=== PATIENT | female | born 1940 | race Caucasian/White ===

== ENCOUNTER → 2016-12-17 | Outpatient (CLI) | payer MEDICARE, OTHER ==
[2016-12-17 09:27] LABS: BASOPHILS % (AUTO) 1 % (0-2); EOSINOPHILS # (AUTO) 0.2 10^3uL; EOSINOPHILS % (AUTO) 4 % (0-4); LYMPHOCYTES # (AUTO) 0.8 X10^3; MEAN CORPUSCULAR HGB CONC 33.3 g/dL (31.0-37.0); MEAN CORPUSCULAR VOLUME 93 FL (80-100); MEAN PLATELET VOLUME 9.3 FL (6.0-9.5); MONOCYTES # (AUTO) 0.6 X10^3; MONOCYTES % (AUTO) 11 % (3-11); NEUTROPHILS # (AUTO) 3.8 X10^3; NEUTROPHILS % (AUTO) 70 % (51-67); PLATELET COUNT 205 10^3uL (150-450); WHITE BLOOD COUNT 5.45 10^3uL (4.0-11.0)
[2016-12-17 10:09] LABS: ERYTHROCYTE SEDIMENTATION RT* 17 mm/hr (0-23)
[2016-12-17 10:23] LABS: ALBUMIN 3.6 g/dL (3.4-5.0); CALCULATED IONIZED CALCIUM 4.5 mg/dL (3.8-4.6); TOTAL PROTEIN 6.3 g/dL (6.4-8.5)
== END ==
LOC: LAB 09:05
PROVIDERS: ATTEND Internal Medicine Rheumatology
DX: M54.08 Panniculitis affecting regions of neck and back, sacral and sacrococcygeal region (principal); M06.09 Rheumatoid arthritis without rheumatoid factor, multiple sites
CPT/HCPCS: 36415; 80053; 85025; 85652; 86140

== ENCOUNTER → 2016-12-31 | Outpatient (CLI) | payer MEDICARE, OTHER ==
--- NOTE | 2016-12-31 12:52 | Diagnostic Imaging Report ---
PROCEDURE: CT angiography of the chest with contrast. TECHNIQUE: Multiple contiguous axial images were obtained through the chest after uneventful bolus administration of intravenous contrast. Reconstructed CTA MIP acquisitions were also performed. INDICATION: Elevated d-dimer. FINDINGS: There is good opacification of the aorta and pulmonary arteries. No evidence of aortic aneurysm or dissection. Pulmonary artery show no filling defects to indicate pulmonary emboli. There has been development of mild infiltrate in the lung bases since previous exam more prominent on the left. No pleural effusions. No mediastinal or hilar adenopathy of pathologic size. There are noted bilateral renal cysts. IMPRESSION: 1. No evidence of pulmonary emboli. 2. Mild bilateral lower lobe infiltrates have developed since previous exam. 3. Bilateral renal cysts which appear stable when compared with previous exam of 01/05/2013. Dictated by: Dictated on workstation # [id number]
== END ==
LOC: RAD 10:36
PROVIDERS: ATTEND Internal Medicine Sleep Medicine
DX: R79.89 Other specified abnormal findings of blood chemistry (principal)
CPT/HCPCS: 71275; Q9967